=== PATIENT | male | born 1955 | race Native Hawaiian/Other Pacific Islander ===

== ENCOUNTER 2018-01-28 14:48 | Outpatient (CLI) | payer OTHER ==
[~2018-01-28 14:48] MED LIST: ALBUTEROL0.083 % IN; ALPR0.5T24 PO; AMBIEN5 MG PO; AMIT25TA22 PO; ASPIRIN LOW DOS81 MG OR; CELEBREX200 MG PO; CLARITIN10 M1 PO; CLARITIN10 MG OR; CLOPIDOGREL75 MG PO; GABA100C2 PO; GABA300C2 PO; HYDR-2748 PO; HYDR10TA47 PO; INSUINJ47 SC; LEVEMIR SC; LISI20TA11 PO; NABU500T2 PO; NYST100010 EX; PRAV40TA PO; PROAIR HFA IN; SPIRIVA IN; TOPAMAX25 MG PO; TRIA0.1C5 EX; XANAX XR1 MG PO; ZANAFLEX2 MG PO; ZOLOFT25 MG PO; ZOLP10TA2 PO
== END 2018-01-28 22:21 | disposition home or self-care (01) ==
LOC: RAD 14:48
DX: J20.9 Acute bronchitis, unspecified (principal)

== ENCOUNTER 2018-04-21 05:04 | Outpatient (CLI) | payer OTHER ==
[2018-04-21] MEDS ORDERED: LEXAPRO10 MG PO (11:20)
[2018-04-21] MEDS ORDERED: ALBUTERO1 IN (11:22)
[2018-04-21] MEDS ORDERED: CARB25TA29 PO (11:24)
== END 2018-04-21 05:17 | disposition short-term general hospital (02) ==
LOC: AMB 05:04
DX: R06.02 Shortness of breath (principal)
CPT/HCPCS: A0425; A0427

== ENCOUNTER 2018-04-21 05:27 | Inpatient (IN) | payer OTHER ==
[~2018-04-21] VITALS: Ht 152.4 cm; Wt 66.9 kg
[2018-04-21] VITALS (20 sets, daily range): BP systolic 98–190; BP diastolic 55–102; TEMP 97.6–98.3; Ht 152.4 cm; Wt 66.9 kg
[2018-04-21 06:10] LABS: POTASSIUM 3.5 mmol/L (3.6-5.2); SODIUM 148 mmol/L (136-145)
[2018-04-21 06:23] LABS: PLATELET COUNT 145 K/uL (142-355)
[2018-04-21] MEDS ORDERED: LEXAPRO10 MG PO (11:20)
[2018-04-21] MEDS ORDERED: ALBUTERO1 IN (11:22)
[2018-04-21] MEDS ORDERED: CARB25TA29 PO (11:24)
[2018-04-22] VITALS (14 sets, daily range): BP systolic 101–131; BP diastolic 48–90; TEMP 97.3–98.7
[2018-04-22 06:36] LABS: PLATELET COUNT 103 K/uL (142-355)
[2018-04-22 06:58] LABS: POTASSIUM 3.6 mmol/L (3.6-5.2)
[2018-04-23 00:26] VITALS: BP 139/71; TEMP 98.1
[2018-04-23 04:00] VITALS: BP 135/65; TEMP 97.8
[2018-04-23 08:00] VITALS: BP 148/74; TEMP 97.7
[2018-04-23 11:47] VITALS: BP 135/66; TEMP 97.6
== END 2018-04-23 14:30 | disposition home or self-care (01) | DRG 190 ==
LOC: ED 05:27 → ICU 07:30 → MED/SURG 04-22 13:12
PROVIDERS: Family Medicine; ADMIT Internal Medicine
DX: J44.0 Chronic obstructive pulmonary disease with (acute) lower respiratory infection (principal); J18.8 Other pneumonia, unspecified organism; J44.1 Chronic obstructive pulmonary disease with (acute) exacerbation; I10 Essential (primary) hypertension; E11.42 Type 2 diabetes mellitus with diabetic polyneuropathy; G89.4 Chronic pain syndrome; M15.8 Other polyosteoarthritis; R13.12 Dysphagia, oropharyngeal phase
CPT/HCPCS: 36415; 36600; 80053; 82550; 82805; 83605; 83880; 84484; 85027; 85379; 87040; 87070; 87205; 93005; 94640; 94664; 94668; 94760; 96365; 96366; 96375; 99285; J0456; J0696; J1815; J1940; J2060; J2270; J2920

== ENCOUNTER 2018-06-01 02:54 | Outpatient (CLI) | payer OTHER ==
[~2018-06-01 02:54] MED LIST changes: +ALBUTERO1 IN; +CARB25TA29 PO; +LEXAPRO10 MG PO
== END 2018-06-01 03:10 | disposition short-term general hospital (02) ==
LOC: AMB 02:54
DX: R06.02 Shortness of breath (principal)
CPT/HCPCS: A0425; A0427

== ENCOUNTER 2018-06-01 03:17 | Inpatient (IN) | payer OTHER ==
[2018-06-01] VITALS (21 sets, daily range): BP systolic 00–187; BP diastolic 00–200; TEMP 90–98.2; Ht 180.3 cm; Wt 66.7 kg
[~2018-06-01] VITALS: Ht 180.3 cm; Wt 66.7 kg
[2018-06-01 03:39] LABS: PLATELET COUNT 151 K/uL (142-355)
[2018-06-01 03:56] LABS: POTASSIUM 3.9 mmol/L (3.6-5.2); SODIUM 144 mmol/L (136-145)
[2018-06-01 04:05] LABS: PARTIAL THROMBOPLASTIN TIME 23.4 SECONDS (24.5-33.6)
[2018-06-01 06:28] LABS: PLATELET COUNT 103 K/uL (142-355)
[2018-06-01 06:32] LABS: POTASSIUM 5.1 mmol/L (3.6-5.2)
== END 2018-06-01 08:30 | disposition expired | DRG 208 ==
LOC: ED 03:17 → ICU 04:46
PROVIDERS: ADMIT Family Medicine
PROC: 5A1935Z Respiratory Ventilation, Less than 24 Consecutive Hours (ICD-10-PCS; principal; 2018-06-01)
PROC: 0BH17EZ Insertion of Endotracheal Airway into Trachea, Via Natural or Artificial Opening (ICD-10-PCS; 2018-06-01)
PROC: 06HY33Z Insertion of Infusion Device into Lower Vein, Percutaneous Approach (ICD-10-PCS; 2018-06-01)
DX: R06.03 Acute respiratory distress (principal); J18.8 Other pneumonia, unspecified organism; I50.9 Heart failure, unspecified; R06.02 Shortness of breath; E11.9 Type 2 diabetes mellitus without complications; I10 Essential (primary) hypertension; J44.9 Chronic obstructive pulmonary disease, unspecified; Z99.81 Dependence on supplemental oxygen
CPT/HCPCS: 31500; 36600; 43754; 51702; 80053; 82550; 82805; 83880; 84484; 85007; 85027; 85379; 85610; 85730; 92950; 93005; 94760; 96365; 96366; 96376; 99285; C1768; J0171; J0461; J1940; J1956; J3490